=== PATIENT | male | born 1995 | race Asian ===

== ENCOUNTER 2021-03-01 09:33 | Day surgery (SDC) | payer OTHER, SELFPAY ==
[~2021-03-01] VITALS: Ht 162.6 cm; Wt 86.2 kg
[2021-03-01] MEDS ORDERED: MIDAZOLAM 5 MG/5 ML VIAL ONE (12:39)
[2021-03-01] MEDS ORDERED: MIDAZOLAM 2 MG/2 ML VIAL ONE (12:39)
[2021-03-01] MEDS ORDERED: fentaNYL citrate 0.05 MG/ML VIAL ONE (12:39)
[2021-03-01] MEDS ORDERED: LIDOCAINE 2% 100 MG/5 ML UJET TP ONE (12:40)
[2021-03-01] MEDS ORDERED: fentaNYL citrate 0.05 MG/ML VIAL IVP ONE (13:20)
[2021-03-01] MEDS ORDERED: SIMETHICONE 40 MG/0.6 ML PO PRN (13:20)
== END 2021-03-01 13:30 | disposition home or self-care (01) ==
LOC: MDS 09:33 → MMU 10:03 → MDS 13:30
PROVIDERS: ATTEND Internal Medicine Gastroenterology
DX: K62.5 Hemorrhage of anus and rectum (principal); K59.00 Constipation, unspecified; Z80.0 Family history of malignant neoplasm of digestive organs; Z20.822 Contact with and (suspected) exposure to COVID-19
CPT/HCPCS: J2250; J3010; U0003